=== PATIENT | male | born 1960 | race Caucasian/White ===

== ENCOUNTER 2019-06-02 06:31 | Day surgery (SDC) | payer SELFPAY ==
[2019-06-01 09:28] VITALS: BMI 23.7
[2019-06-02 06:47] VITALS: BP 144/95; PULSE 114; RESP 18; TEMP 36.5; O2SAT 95
[2019-06-02] MEDS: sodium chloride 0.9% 1,000 ML 30 ML (07:08)
--- NOTE | 2019-06-02 07:14 | ANES.PREANE2 ---
Pre-Anesthetic Assessment Pre-Anesthetic Assessment: Height/Weight: Height 1.73 m Weight 70.76 kg Temp Pulse Resp BP Pulse Ox 97.7 F 114 H 18 144/95 95 06/02/19 06:47 06/02/19 06:47 06/02/19 06:47 06/02/19 06:47 06/02/19 06:47 Preop Diagnosis: Screening colonoscopy Proposed Procedure: Operation Date: 06/02/19 07:45 Proposed Procedures p COLON(Not Applicable) - Dennis Flannery MD Familial anesthetic complications: denies Was Beta Yash taken within 24 hours: N/A Last intake: Intake Last Liquid Date 06/01/19 Last Liquid Time 20:00 Last Solid Date 06/01/19 Last Solid Time 12:00 Social: Social History: Alcohol (beer most days and whiskey every now and then ) and Tobacco Packs per day: 2 Pack years: greater than 25 years Exam: Pre-Anes Outpt Exam: alert, oriented x 3 and clear to auscultation bilaterally Airway: MP: 1 Dentition: Full (upper denture ) History/ROS: No significant history except as noted Pulmonary: Pulmonary: COPD and Cough CV/HEM: CV/HEM: HTN (says it goes up and down) : : None reported Hepatic: Hepatic: None reported GI: GI: None reported Metabolic: Metabolic: None reported Musc/skel: Musc/skel: Lower Back Pain Neuropsych: Neuropsych: None reported Anesthetic Plan: ASA status: 2 Anesthesia: Anesthesia Evaluation and MAC PFSH Anesthesia PFSH: Social History Smoking and tobacco status: current every day smoker Alcohol intake: current Desire information about alcohol rehabilitation?: No Data Anesthesia Cardiac Studies: No Data to Display
--- NOTE | 2019-06-02 07:46 | W.PM.OPSUD ---
Surgery/Procedure H&P Update DATE OF PROCEDURE: June 02, 2019 DATE H&P PERFORMED: 05/27/19 H&P UPDATE INFORMATION: I have reviewed H&P completed within last 30 days, I have examined patient prior to procedure and No changes to prior documentation PREOP DIAGNOSIS: Screening colonoscopy PRIMARY INDICATION FOR PROCEDURE: The same PLANNED PROCEDURE: Operation Date: 06/02/19 07:45 Proposed Procedures p COLON(Not Applicable) - Dennis Flannery MD
[2019-06-02 08:40] VITALS: BP 115/76; PULSE 78; RESP 16; TEMP 36.3; O2SAT 98
[2019-06-02 08:54] VITALS: BP 120/88; PULSE 90; RESP 18; O2SAT 99
== END 2019-06-02 09:06 | disposition home or self-care (01) ==
PROVIDERS: Visit Provider Surgery
PROC: 0DJD8ZZ Inspection of Lower Intestinal Tract, Via Natural or Artificial Opening Endoscopic (ICD-10-PCS; CPT 45378; principal; 2019-06-02 07:45)
DX: Z12.11 Encounter for screening for malignant neoplasm of colon (principal); J44.9 Chronic obstructive pulmonary disease, unspecified; I10 Essential (primary) hypertension; F17.210 Nicotine dependence, cigarettes, uncomplicated
CPT/HCPCS: 12345; 45378; J2704; J7030

== ENCOUNTER 2021-01-30 13:39 | Emergency (ER) | payer SELFPAY ==
[2021-01-30] VITALS (13 sets, daily range): BP systolic 139–197; BP diastolic 100–116; PULSE 78–126; RESP 14–25; TEMP 36.5; O2SAT 95–97; BMI 25.0
--- NOTE | 2021-01-30 13:42 | ECG_ITS ---
[facility] Test Date: 2021-01-30 Pat Name: John Farah Department: Room: Gender: Male Bean Viner: : 1960 Requested By: Alvarez Oden Order Number: [id number] Michelle MD: Lissy Pablo M.D. Measurements Intervals [place] Rate: 119 P: 64 GA: 155 QRS: 34 QRSD: 78 T: 42 QT: 292 QTc: 411 Interpretive Statements SINUS TACHYCARDIA MINIMAL ST DEPRESSION [0.025+ mV ST DEPRESSION] No previous ECG available for comparison Electronically Signed On 01-31-2021 7:30:23 MAINTENANCE PLANNER by Lissy Pablo M.D. [id number]
--- NOTE | 2021-01-30 14:19 | XRR_ITS ---
PROCEDURE INFORMATION: Exam: XR Chest Exam date and time: 01/30/2021 2:19 PM Age: 60 years old Clinical indication: Patient HX: C/O chest pain at a level of 5. HX of skin cancer TECHNIQUE: Imaging protocol: XR of the chest. Views: 1 view. COMPARISON: CT neck w con* [id number] 11/05/2017 10:08 AM FINDINGS: Lungs: Unremarkable. No consolidation. Pleural spaces: Unremarkable. No pleural effusion. No pneumothorax. Heart/Mediastinum: Unremarkable. No cardiomegaly. Bones/joints: Unremarkable. XR/XR chest 1V portable [id number] IMPRESSION: No acute findings. Radiation Dose CTDIVOL = (mGy): DLP = (mGy-cm)
--- NOTE | 2021-01-30 14:39 | W.ED.CHESTPA ---
HPI - Chest Pain General: Chief Complaint: Chest Pain Stated Complaint: Chest Pain Time Seen by Provider: 01/30/21 14:17 History of Present Illness: HPI narrative: 60-year-old male presents emergency room from a local clinic. He was seen there with complaints of chest pain yesterday is radiating into his neck and back. There is less chest pain today with no radiation. No shortness of breath no diaphoresis no nausea. Has not had any previous known cardiac events or evaluate cardiac evaluation. He does have a family history of heart disease father young of a heart attack. Patient does smoke regularly he has hypertension but does not take any medications. Unfortunately he recently lost his son to an unknown cardiac issue. MD complaint: chest pain Onset (ago): hour(s) Timing of current episode: episodic Prior episodes: Yes Onset: during rest Pain location: left chest Severity: moderate Quality: tightness and aching Relieving factors: nothing Exacerbating factors: nothing Associated symptoms: Deny abdominal pain, diaphoresis, dyspnea, fever(s), leg edema, nausea, palpitations, sense of impending doom, syncope or vomiting Treatment prior to arrival: none Review of Systems Const: Denies: fever(s) or diaphoresis ENMT: Denies: throat pain, ear or mastoid pain, nasal discharge or nasal congestion Card: Denies: palpitations or syncope Resp: Denies: dyspnea GI: Denies: abdominal pain, nausea or vomiting : Denies: flank pain, dysuria, urinary frequency or urinary urgency Skin/Breast: Denies: rash or pruritus [facility] PFSH: Medical History (Updated 01/30/21 @ 18:04 by Alvarez Perdomo DO) Normal colonoscopy Surgical History History of colonoscopy (~2009) Status post lumbar spine operation Social History Smoking and tobacco status: current every day smoker Alcohol intake: current Desire information about alcohol rehabilitation?: No Physical Exam Const: COMMON NORMALS: no acute distress GENERAL APPEARANCE: cooperative and comfortable ORIENTATION/CONSCIOUSNESS: Yes awake, Yes oriented to person, Yes oriented to place and Yes oriented to time HENMT: COMMON NORMALS: normocephalic, atraumatic and hearing grossly normal bilaterally HEAD & SCALP: normocephalic and atraumatic Resp: COMMON NORMALS: normal respiratory effort, No retractions, No use of accessory muscles and clear to auscultation bilaterally AUSCULTATION: clear to auscultation bilaterally Cardio: COMMON NORMALS: regular rate, regular rhythm and No murmurs present (Cardio) RATE: regular rate RHYTHM: regular rhythm GI: COMMON NORMALS: Soft to palpation and No hepatosplenomegaly present AUSCULTATION: Yes normoactive bowel sounds PALPATION: Yes Soft to palpation, No Tenderness to palpation present (GI), No Guarding due to palpation present (GI) and Yes No hepatosplenomegaly present Extremity: COMMON NORMALS: normal to inspection, capillary refill normal, no clubbing, cyanosis or edema, no calf tenderness and no pedal edema Neuro: SENSORIUM/ORIENTATION: Yes oriented to person, Yes oriented to place and Yes oriented to time Skin: COMMON NORMALS: no rashes or lesions noted GENERAL SKIN EXAM: no rashes or lesions noted Course Vital Signs: Vital signs: Vital Signs Temperature 97.7 F 01/30/21 13:48 Pulse Rate 78 01/30/21 17:30 Respiratory Rate 19 H 01/30/21 17:30 Blood Pressure 140/100 01/30/21 17:30 Pulse Oximetry 96 01/30/21 17:30 MDM - Chest Pain MDM Narrative: Medical decision making narrative: Reviewed labs imaging and EKG on the chart. Discussed with the patient. Does have significant elevation in his blood pressure is chest discomfort has resolved he would prefer to go home. We will start him on amlodipine 5 mg daily and Toprol-XL 25 daily have him follow-up with his primary care doctor in the next 1 to 2 days. Return if he has any further problems and we will set him up for an outpatient sestamibi stress test. Lab Data: Labs: Lab Results 01/30/21 01/30/21 01/30/21 15:03 15:03 15:03 WBC 10.3 10^3/uL H 10 ^3/uL (4.0-10.0) RBC 4.80 10^6/uL 10^6 /uL (4.1-5.3) Hgb 16.2 g/dL g/dL (11.7-16.6) Hct 47.5 % % (42.0-52.0) MCV 99.0 fl H fl (80-94) MCH 33.8 pg pg (28.0-34.0) MCHC 34.1 g/dL g/dL (30.0-36.0) RDW 12.6 % % (12.1-15.1) Plt Count 264 10^3/cmm 10^3 /cmm (130-400) MPV 9.4 fL fL (7.4-10.4) Neut % (Auto) 71.5 % % Lymph % (Auto) 17.4 % % [place] % (Auto) 10.1 % % Eos % (Auto) 0.2 % % Baso % (Auto) 0.5 % % Neut # (Auto) 7.35 10^3/uL 10^3 /uL (1.8-7.7) Lymph # (Auto) 1.8 10^3/uL 10^3/ uL (0.8-4.8) [place] # (Auto) 1.0 10^3/uL H 10^ 3/uL (0.2-0.9) Eos # (Auto) 0.0 10^3/uL 10^3/ uL (0.0-0.8) Baso # (Auto) 0.1 10^3/uL 10^3/ uL (0.0-0.1) Nucleated RBC % (a uto) 0 % % Nucleated RBCs # 0.0 /100WBC /100W BC Sodium 136 mmol/L mmol/L (136-145) Potassium 4.1 mmol/L mmol/L (3.5-5.1) Chloride 98 mmol/L mmol/L (98-107) Carbon Dioxide 25 mmol/L mmol/L (22-29) Anion Gap 17.1 (5-19) BUN 13 mg/dL mg/dL (8-23) Creatinine 0.9 mg/dL mg/dL (0.7-1.2) GFR Calculation 85.5 mL/min L mL/ min (90-130) Glucose 115 mg/dL mg/dL (65-115) Calculated Osmolal ity 283 mOsm/kg L mOs m/kg (285-295) Calcium 9.6 mg/dL mg/dL (8.5-10.5) Total Bilirubin 0.5 mg/dL mg/dL (0.15-1.2) AST 51 U/L H U/L (0-40) ALT 70 U/L H U/L (0-41) Alkaline Phosphata se 109 IU/L IU/L (40-130) Troponin T Baselin e 9 ng/L ng/L (0-15) Troponin T 120 Min jaden Delta Troponin T Total Protein 7.7 g/dL g/dL (6.6-8.7) Albumin 4.2 g/dL g/dL (3.5-5.2) Globulin 3.5 g/dL g/dL (1.3-4.6) 01/30/21 17:10 WBC RBC Hgb Hct MCV MCH MCHC RDW Plt Count MPV Neut % (Auto) Lymph % (Auto) [place] % (Auto) Eos % (Auto) Baso % (Auto) Neut # (Auto) Lymph # (Auto) [place] # (Auto) Eos # (Auto) Baso # (Auto) Nucleated RBC % (a uto) Nucleated RBCs # Sodium Potassium Chloride Carbon Dioxide Anion Gap BUN Creatinine GFR Calculation Glucose Calculated Osmolal ity Calcium Total Bilirubin AST ALT Alkaline Phosphata se Troponin T Baselin e Troponin T 120 Min jaden 9.47 ng/L ng/L (0-15) Delta Troponin T 0.47 ABS# ABS# (0-10) Total Protein Albumin Globulin Discharge Plan Discharge Patient Disposition: Home Clinical Impression: Atypical chest pain, Benign essential HTN Condition: Stable Prescriptions: New amlodipine 5 mg tablet 5 mg PO DAILY Qty: 30 RF: 0 Toprol XL 25 mg tablet extended release 24 hr 25 mg PO DAILY Qty: 30 RF: 0 No Action aspirin 325 mg Tablet 325 mg PO ONCE RF: 0 aspirin [Aspir-81] 81 mg Tablet,Delayed Release (Dr/Ec) 81 mg PO ONCE RF: 0 Tylenol Ex Str Rapid Release 500 mg Tablet 500 mg PO Q4H PRN (Reason: Pain) RF: 0 Discharge Orders: Discharge ED (Routine); Ordered 01/30/21 Ordered By: Alvarez Perdomo Discharge Diet: Usual diet Discharge Activity: Limit activity as instructed Patient Instructions: Opioid Safety Activity Restrictions/Additional Instructions: Case Management will call and arrange for you to ahve a stress test as an outpatient. Coding Level of Care Code ED Customer Care Consultant for Les Fwd Exam Detailed
[2021-01-30 15:09] LABS: Basophils # 0.1 10^3/uL (0.0-0.1); Basophils % 0.5 %; Eosinophils % 0.2 %; Hematocrit 47.5 % (42.0-52.0); Hemoglobin 16.2 g/dL (11.7-16.6); Lymphocytes # 1.8 10^3/uL (0.8-4.8); Lymphocytes % 17.4 %; Mean Corpuscular HGB Conc 34.1 g/dL (30.0-36.0); Mean Corpuscular Hemoglobin 33.8 pg (28.0-34.0); Mean Platelet Volume 9.4 fL (7.4-10.4); Monocytes % 10.1 %; Neutrophils # 7.35 10^3/uL (1.8-7.7); Neutrophils % 71.5 %; Nucleated Red Blood Cells % 0 %; Platelet Count 264 10^3/cmm (130-400); Red Cell Distribution Width 12.6 % (12.1-15.1); White Blood Count 10.3 10^3/uL (4.0-10.0)
[2021-01-30] MEDS: aspirin 81 mg Chew Tablet 324 MG PO (15:15)
[2021-01-30] MEDS: metoprolol tartrate 50 mg Tablet PO (15:16)
[2021-01-30] MEDS: metoprolol tartrate 1 mg/1 mL SDV 5 mL 5 MG IVP (15:17)
[2021-01-30] MEDS: isosorbide mononitrate ER 30 mg Tablet PO (15:17)
[2021-01-30 15:28] LABS: Troponin(5th) Baseline 9 ng/L (0-15)
[2021-01-30 15:49] LABS: Alanine Aminotransferase 70 U/L (0-41); Albumin Level 4.2 g/dL (3.5-5.2); Alkaline Phosphatase 109 IU/L (40-130); Anion Gap 17.1 (5-19); Aspartate Amino Transferase 51 U/L (0-40); Blood Urea Nitrogen 13 mg/dL (8-23); Calcium 9.6 mg/dL (8.5-10.5); Carbon Dioxide 25 mmol/L (22-29); Chloride 98 mmol/L (98-107); Creatinine Clr Calc Pharmacy 85.4355; Globulin 3.5 g/dL (1.3-4.6); Glomerular Filtration Rate 85.5 mL/min (90-130); Glucose 115 mg/dL (65-115); Osmolality Calculated 283 mOsm/kg (285-295); Potassium 4.1 mmol/L (3.5-5.1); Sodium 136 mmol/L (136-145); Total Bilirubin 0.5 mg/dL (0.15-1.2); Total Protein 7.7 g/dL (6.6-8.7)
[2021-01-30 18:00] LABS: Troponin 5 2HR 9.47 ng/L (0-15); Troponin 5 2HR Delta 0.47 ABS# (0-10)
--- NOTE | 2021-01-31 10:13 | DCPLANNER ---
manager financial had message to schedule an out patient stress test for patient. manager financial called and asked patient if he wanted showcase maker to schedule the stress test, patient stated that he did. manager financial asked patient about a primary care physician, patient stated that he does not have one at this time. manager financial asked patient if showcase maker could get patient set up with Dr. Tracy or Dr. Mast at [facility], patient stated that would be fine. manager financial will fax signed order to centralized scheduling, and when the stress test is scheduled, showcase maker will schedule a follow up appointment at [facility].
--- NOTE | 2021-02-08 13:52 | DCPLANNER ---
Addendum entered by Swetha Sanchez 04/15/21 15:30: Patient had a followup appointment scheduled for an out patient stress test - appointment was cancelled Patient had a follow up appointment scheduled with Dr. Tracy at [facility] - patient did not attend appointment. Original Note: evs manager called [facility], spoke with Lissa, gave clinic patients information. A follow up appointment was scheduled for Friday, February 19, 2021 at 9:[address] Tracy. This is after the stress test, so the results of the stress test can be gone over with patient. evs manager called patient and gave him the appointment information for the appointment with Dr. Tracy.
== END 2021-01-30 18:13 | disposition home or self-care (01) ==
PROVIDERS: Emergency Provider Family Medicine
DX: R07.89 Other chest pain (principal); I10 Essential (primary) hypertension; Z79.82 Long term (current) use of aspirin; F17.200 Nicotine dependence, unspecified, uncomplicated
CPT/HCPCS: 71045; 80053; 84484; 85025; 93005; 96374; 99284; J3490

== ENCOUNTER 2021-02-14 10:32 | Outpatient (CLI) | payer SELFPAY ==
--- NOTE | 2021-02-12 07:46 | SUR.PREOP ---
PROCEDURE RESCHEDULE Patient arrived but had caffeine this morning at approximately 3:30. Explained the restrictions for caffeine and they understood the need for reschedule. Placed on stress schedule at earliest date/time. 02/14/21 with a check in at 9:45 am. Prep instructions given to the patient and which they understood before leaving today. Discharge disposition is good.
[2021-02-14 09:58] VITALS: BMI 24.6
--- NOTE | 2021-02-14 10:38 | ECG_ITS ---
[facility] Test Date: 2021-02-14 Pat Name: John Farah Department: Room: Gender: Male Wax Specialist: : 1960 Requested By: Marcelino Harrison Order Number: [id number] Michelle MD: DORA ALEGRIA Interpretive Statements NAME OF STUDY: LEXISCAN SESTAMIBI STRESS TEST INDICATION: Atypical Chest Pain RESULTS TO RANCHO RUCKER NOTE: Please note that this is the electrocardiogram portion of the Lexiscan/Sestamibi stress test. The perfusion scan will be documented separately. DATA: Baseline heart rate was 93 beats per minute. Baseline blood pressure was 170/101 millimeters of mercury. Target heart rate was 158. Maximum heart rate achieved was 131. which was 82 % of the predicted target heart rate. Maximum blood pressure was 177/101 millimeters of mercury. The reason for ending the test was completion of the protocol. The patient did not experience any symptoms. ELECTROCARDIOGRAM: BASELINE: Sinus rhythm. Normal axis. Otherwise, no ST-T changes suggestive of ischemia noted. No arrhythmia noted. EXERCISE: After Lexiscan injection, no ST-T changes suggestive of ischemic noted. No arrhythmia noted. 1. EKG not suggestive of ischemia 2. Lexiscan injection unremarkable. 3. Perfusion scan will be documented separately. Electronically Signed On 02-16-2021 14:39:58 PIN DRAFTING MACHINE TENDER by DORA ALEGRIA [id number]
--- NOTE | 2021-02-14 10:38 | NMCV_ITS ---
NM ina perf SPECT r/s* [id number] John Farah Age: 60 Gender: M : 1960 Exam Date: 02/14/2021 11:34 Ordering Phys: Marcelino Starkey DO Technologist: BYRON Boyd Exam Location: [facility] Indications: CHEST PAIN STRESS TEST [facility] IMAGE PROTOCOL Rest/Stress 1 Lexiscan Day Radiopharmaceutical Dose (mCi) Administration Site Administered by Rest: Tc-99m 10.9 IV BYRON Coto Sestamibi Stress:Tc-99m 32.4 IV BYRON Coto Sestamibi Rest: 14-Feb-2021 60 Discovery 630 Stress: 14-Feb-2021 30 Discovery 630 0.4mg Lexiscan. Images obtained in supine and prone position. SPECT RESULTS Technical Quality: Excellent Raw Data Analysis: Normal Image Corrections: No attenuation or motion correction applied Summed Stress Score: 0 Summed Rest Score: 0 Summed Difference Score: 0 PERFUSION FINDINGS Medium-sized area of patchy decreased tracer uptake noted in basal to mid inferior wall on both stress and rest images with mild reversibility in the absence of wall motion abnormality could be secondary to artifact, clinical correlation advised. FUNCTIONAL RESULTS (calculated via Gated SPECT) Stress Image LV EF (%): 63 Stress EDV (mL):79 TID: 0.94 Stress ESV (mL):29 Rest Image LV EF (%): 63 FUNCTIONAL FINDINGS: There is normal left ventricular systolic function. IMPRESSIONS Medium-sized area of patchy decreased tracer uptake noted in basal to mid inferior wall on both stress and rest images with mild reversibility in the absence of wall motion abnormality could be secondary to artifact, clinical correlation advised. EKG segment will be documented separately. Ian Christy MD (Electronically Signed) Final Date: 14 February 2021 15:19 S
[2021-02-14] MEDS: regadenoson 0.4 Mg/5 ml Syringe IVP (12:27)
[2021-02-14 13:05] VITALS: BP 168/86; PULSE 86
== END 2021-02-14 10:33 | disposition home or self-care (01) ==
LOC: RAD 10:32 → CDL 10:32
PROVIDERS: Visit Provider Pediatrics Pediatric Allergy/Immunology
DX: R07.89 Other chest pain (principal)
CPT/HCPCS: 78452; 93017; A9500; J2785

== ENCOUNTER 2022-11-01 10:12 | Outpatient (CLI) | payer SELFPAY ==
--- NOTE | 2022-11-01 10:30 | CT_ITS ---
WS: [id number] LDCT LUNG CANCER SCREENING TECHNIQUE: Noncontrast CT of the chest with coronal and sagittal reformatted images. CLINICAL INFORMATION: smoker COMPARISON: None. DLP: 59.58 mGy.cm DIvol: Mean CTDIvol: 0.90 (mGy) All CT scans at [facility] use at least one of these dose optimization techniques: automat ed exposure control; mA and/or kV adjustment per patient size (includes targeted exams where dose is matched to clinical indication); or iterative reconstruction. FINDINGS: Lungs are well aerated. No acute pulmonary infiltrates. A few calcified granulomas. No othe r suspicious pulmonary parenchymal abnormalities Normal caliber thoracic aorta. Calcified mediastinal subcarinal and hilar lymph nodes. No axillary ly mphadenopathy. Normal GE junction. Noncontrast liver appears normal. Spleen granulomas. Noncontrast p ancreas appears normal. Adrenal glands appear normal. Normal GE junction. IMPRESSION: CT/CT lung screening [id number] LUNG-RADS: 1-Negative FOLLOW UP: 12 Month: Continue annual screening with LDCT
== END 2022-11-01 10:13 | disposition home or self-care (01) ==
LOC: RAD 10:13
PROVIDERS: PCP Family Medicine Adult Medicine; Visit Provider Family Medicine Adult Medicine
DX: F17.200 Nicotine dependence, unspecified, uncomplicated (principal); Z12.2 Encounter for screening for malignant neoplasm of respiratory organs
CPT/HCPCS: 71271

== ENCOUNTER 2024-03-17 10:36 | Observation (INO) | payer MEDICARE, SELFPAY ==
[2024-03-17] VITALS (11 sets, daily range): BP systolic 122–212; BP diastolic 68–135; PULSE 74–156; RESP 15–20; TEMP 36.6–36.9; O2SAT 94–98; BMI 22.8
--- NOTE | 2024-03-17 10:50 | ECG_ITS ---
[facility] Date: 2024-03-17 Pat Name: John Farah Department: Room: Gender: Male Cocoa Mill Operator: : 1960 Requested By: Michelle Sher Order Number: [id number] Michelle MD: Temo Haley M.D. Measurements Intervals [place] Rate: 138 P: 72 IN: 139 QRS: 68 QRSD: 86 T: 27 QT: 297 QTc: 450 Interpretive Statements SINUS TACHYCARDIA NONSPECIFIC ST & T-WAVE ABNORMALITY ABNORMAL RHYTHM ECG Compared to ECG 01/30/2021 13:46:49 T-wave abnormality now present ST (T wave) deviation no longer present Electronically Signed On 03-17-2024 17:39:01 SNAKE CHARMER by Temo Haley M.D. [id number]
--- NOTE | 2024-03-17 10:51 | W.ED.CHESTPA ---
HPI - Chest Pain General: Chief Complaint: Arrhythmia/Palpitations Stated Complaint: HR is high Time Seen by Provider: 03/17/24 10:41 Source: patient Mode of arrival: ambulatory Limitations: no limitations History of Present Illness: 63-year-old male states that he has been having some chest pain over the last 2 to 3 days states been pain down both his arms states this morning when he woke up he has been hypertensive and has had tachycardia as well heart rate was 140s at home it is 117 currently he is hypertensive 211/114 has had some mild dyspnea rates his pain a 2 out of 10 denies any fever vomiting Associated symptoms: Reports palpitations; Deny abdominal pain, dyspnea, fever(s), nausea or vomiting Related Data Home Medications Medication Instructions Recorded Confirmed amlodipine 10 mg tablet 10 mg PO DAILY 03/17/24 03/17/24 chlorthalidone 25 mg tablet 25 mg PO QAM 03/17/24 03/17/24 Previous Rx's Medication Instructions Recorded aspirin 81 mg tablet,delayed 81 mg PO ONCE #90 tabs 08/06/23 release albuterol sulfate 90 mcg/actuation 2 inh inhalation Q4H PRN shortness 08/27/23 aerosol inhaler of breath or wheezing #6.7 grams Allergies Allergy/AdvReac Type Severity Reaction Status Date / Time codeine Allergy ADR/ALGY-Pa Verified 08/26/23 09:29 lpitations meloxicam [From Mobic] Allergy Unknown Verified 08/26/23 09:29 Review of Systems Const: Denies: fever(s), chills, body aches or change in appetite ENMT: Denies: throat pain or dental pain Card: Reports: chest pain and palpitations Resp: Denies: dyspnea GI: Denies: abdominal pain, nausea, vomiting or diarrhea Musc: Denies: neck pain or back pain Skin/Breast: Denies: rash Neuro: Denies: headache(s) PFSH ED PFSH: Medical History (Updated 03/17/24 @ 12:53 by Michelle Sher MD) Anxiety and depression Abdominal pain in male Elevated blood pressure reading in office with diagnosis of hypertension Allergic rhinitis due to allergen Perforated right tympanic membrane on examination Hearing 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 COPD (chronic obstructive pulmonary disease) Smoker Age 8 to present, 2ppd so 100+ ppy Hypertension Normal colonoscopy Surgical History Status post lumbar spine operation History of colonoscopy (~2009) Social History Smoking and tobacco/nicotine status: current every day tobacco/nicotine user Alcohol intake: current Physical Exam Const: COMMON NORMALS: patient oriented x3 HENMT: COMMON NORMALS: normocephalic and atraumatic HEAD & SCALP: normocephalic and atraumatic Eye: COMMON NORMALS: Equal, round and reactive pupils present and EOMs intact bilaterally PUPIL: Yes Equal, round and reactive pupils present Neck/C-Spine: COMMON NORMALS: full ROM and supple Chest: COMMONS NORMALS: normal inspection of the chest Resp: COMMON NORMALS: normal respiratory effort, No retractions, No use of accessory muscles and clear to auscultation bilaterally AUSCULTATION: clear to auscultation bilaterally Cardio: COMMON NORMALS: regular rhythm and No murmurs present (Cardio) RATE: tachycardic RHYTHM: regular rhythm GI: COMMON NORMALS: Normal to inspection, nondistended, normoactive bowel sounds present, Soft to palpation, non-tender and no masses PALPATION: Yes Soft to palpation Extremity: COMMON NORMALS: normal to inspection and full ROM Neuro: COMMON NORMALS: patient oriented x3, moves all extremities and no focal motor deficits Psych: COMMON NORMALS: mental status grossly normal, Normal thought process present and cooperative THOUGHT PROCESS: Normal thought process present Skin: COMMON NORMALS: no rashes or lesions noted and no wounds GENERAL SKIN EXAM: no rashes or lesions noted Course Vital Signs: Vital signs: Vital Signs Temperature 97.9 F 03/17/24 10:56 Pulse Rate 75 03/17/24 13:11 Respiratory Rate 15 03/17/24 11:45 Blood Pressure 175/68 03/17/24 13:11 Pulse Oximetry 98 03/17/24 13:11 Oxygen Delivery Me thod Room Air 03/17/24 10:51 MDM - Chest Pain Medical Decision Making Patient presents here with chest pain is also hypertensive his initial troponin here is 44 his blood pressure heart rate here is improved D-dimer was negative I spoke to the hospitalist will admit for ACS rule out. Medical Records I reviewed the patient's medical records. Lab Data I reviewed the patient's lab results. 03/17/24 10:49 03/17/24 10:49 Radiology Impressions Chest X-Ray 03/17/24 11:07 IMPRESSION: 1. The lungs are clear. 2. Cardiomegaly. Laboratory Results WBC 14.66 10^3/uL (3.29-11.43) H 03/17/24 10:49 RBC 5.80 10^6/uL (3.85-5.65) H 03/17/24 10:49 Hgb 18.80 g/dL (11.27-16.99) H 03/17/24 10:49 Hct 55.3 % (37-53) H 03/17/24 10:49 MCV 95.3 fl (82-101) 03/17/24 10:49 MCH 32.4 pg (27-33) 03/17/24 10:49 MCHC 34.0 g/dL (30-55) 03/17/24 10:49 RDW 12.8 % (12.1-15.1) 03/17/24 10:49 Plt Count 309 10^3/cmm (157-399) 03/17/24 10:49 MPV 9.8 fL (7.4-10.4) 03/17/24 10:49 Neut % (Auto) 61.5 % 03/17/24 10:49 Lymph % (Auto) 27.6 % 03/17/24 10:49 [place] % (Auto) 9.3 % 03/17/24 10:49 Eos % (Auto) 0.8 % 03/17/24 10:49 Baso % (Auto) 0.4 % 03/17/24 10:49 Neut # (Auto) 9.02 10^3/uL (1.8-7.7) H 03/17/24 10:49 Lymph # (Auto) 4.1 10^3/uL (0.8-4.8) 03/17/24 10:49 [place] # (Auto) 1.4 10^3/uL (0.2-0.9) H 03/17/24 10:49 Eos # (Auto) 0.1 10^3/uL (0.0-0.8) 03/17/24 10:49 Baso # (Auto) 0.1 10^3/uL (0.0-0.1) 03/17/24 10:49 Nucleated RBC % (auto) 0 % 03/17/24 10:49 Nucleated RBCs # 0.0 /100WBC 03/17/24 10:49 D-Dimer 0.37 ug/mLFEU (0-0.59) 03/17/24 10:49 Sodium 136 mmol/L (136-145) 03/17/24 10:49 Potassium 3.4 mmol/L (3.5-5.1) L 03/17/24 10:49 Chloride 98 mmol/L (98-107) 03/17/24 10:49 Carbon Dioxide 23 mmol/L (22-29) 03/17/24 10:49 Anion Gap 18.4 (5-19) 03/17/24 10:49 BUN 16 mg/dL (8-23) 03/17/24 10:49 Creatinine 1.2 mg/dL (0.7-1.2) 03/17/24 10:49 GFR Calculation 60.8 mL/min (90-130) L 03/17/24 10:49 Glucose 163 mg/dL (65-115) H 03/17/24 10:49 Calculated Osmolality 287 mOsm/kg (285-295) 03/17/24 10:49 Calcium 9.7 mg/dL (8.5-10.5) 03/17/24 10:49 Total Bilirubin 0.5 mg/dL (0.15-1.2) 03/17/24 10:49 AST 20 U/L (0-40) 03/17/24 10:49 ALT 17 U/L (0-41) 03/17/24 10:49 Alkaline Phosphatase 151 U/L (40-130) H 03/17/24 10:49 Troponin T Baseline 44 ng/L (0-15) H 03/17/24 10:49 Troponin T 120 Minute 56.06 ng/L (0-15) H 03/17/24 12:49 Delta Troponin T 12.06 ABS# (0-10) H* 03/17/24 12:49 Total Protein 8.5 g/dL (6.6-8.7) 03/17/24 10:49 Albumin 4.4 g/dL (3.5-5.2) 03/17/24 10:49 Globulin 4.1 g/dL (1.3-4.6) 03/17/24 10:49 All radiology interpretation(s) finalized by discharge EKG Data EKG 1: I personally reviewed and interpreted this EKG as follows: EKG interpretation date: 03/17/24 EKG interpretation time: 10:44 Interpretation: sinus tach hr [address] elevationm qrs 86 qtc 377 Discharge Plan Discharge Patient Disposition: Admitted As Inpatient Clinical Impression: Chest pain Hypertension Qualifiers: Hypertension type: primary hypertension Qualified Code(s): I10 - Essential (primary) hypertension Condition: Stable Coding Level of Care Code ED Corporate Banking Officer for Chg Jensen
[2024-03-17] MEDS: labetalol 5 mg/mL SDV 20mL 10 MG IVP (11:00)
[2024-03-17] MEDS: aspirin 81 mg Chew Tablet 324 MG PO (11:01)
[2024-03-17 11:03] LABS: Basophils # 0.1 10^3/uL (0.0-0.1); Basophils % 0.4 %; Eosinophils # 0.1 10^3/uL (0.0-0.8); Eosinophils % 0.8 %; Hematocrit 55.3 % (37-53); Lymphocytes # 4.1 10^3/uL (0.8-4.8); Lymphocytes % 27.6 %; Mean Corpuscular Hemoglobin 32.4 pg (27-33); Mean Corpuscular Volume 95.3 fl (82-101); Mean Platelet Volume 9.8 fL (7.4-10.4); Monocytes # 1.4 10^3/uL (0.2-0.9); Monocytes % 9.3 %; Neutrophils # 9.02 10^3/uL (1.8-7.7); Neutrophils % 61.5 %; Nucleated Red Blood Cells % 0 %; Platelet Count 309 10^3/cmm (157-399); Red Cell Distribution Width 12.8 % (12.1-15.1); White Blood Count 14.66 10^3/uL (3.29-11.43)
--- NOTE | 2024-03-17 11:07 | XRR_ITS ---
PROCEDURE INFORMATION: Exam: XR Chest Exam date and time: 03/17/2024 11:15 AM Age: 63 years old Clinical indication: Chest wall pain; Additional info: Cp TECHNIQUE: Imaging protocol: Radiologic exam of the chest. Views: 1 view. COMPARISON: CT lung screening [id number] 11/01/2022 10:27 AM FINDINGS: Lungs: The lungs are clear. Pleural spaces: No pneumothorax or pleural effusion. Heart/Mediastinum: Heart size is enlarged. Mediastinal contours unremarkable. Bones/joints: No acute osseous or soft tissue abnormality. XR/XR chest 1V portable [id number] IMPRESSION: 1. The lungs are clear. 2. Cardiomegaly.
[2024-03-17 11:12] LABS: D Dimer 0.37 ug/mLFEU (0-0.59)
[2024-03-17 11:19] LABS: Alanine Aminotransferase 17 U/L (0-41); Albumin Level 4.4 g/dL (3.5-5.2); Alkaline Phosphatase 151 U/L (40-130); Aspartate Amino Transferase 20 U/L (0-40); Blood Urea Nitrogen 16 mg/dL (8-23); Calcium 9.7 mg/dL (8.5-10.5); Carbon Dioxide 23 mmol/L (22-29); Chloride 98 mmol/L (98-107); Creatinine Clr Calc Pharmacy 59.2497; Globulin 4.1 g/dL (1.3-4.6); Glomerular Filtration Rate 60.8 mL/min (90-130); Glucose 163 mg/dL (65-115); Osmolality Calculated 287 mOsm/kg (285-295); Sodium 136 mmol/L (136-145); Total Bilirubin 0.5 mg/dL (0.15-1.2); Total Protein 8.5 g/dL (6.6-8.7); Troponin(5th) Baseline 44 ng/L (0-15)
[2024-03-17 11:28] LABS: Anion Gap 18.4 (5-19); Potassium 3.4 mmol/L (3.5-5.1)
--- NOTE | 2024-03-17 12:50 | ECG_ITS ---
[facility]: 2024-03[facility]17 Pat Name: John Farah Department: Room: Gender: Male Section Gang: : 1960 Requested By: Michelle Sher Order Number: [id number] Michelle MD: Temo Haley M.D. Measurements Intervals [place] Rate: 75 P: 53 CT: 108 QRS: 65 QRSD: 94 T: 41 QT: 375 QTc: 421 Interpretive Statements SINUS RHYTHM WITH SHORT CT INTERVAL Compared to ECG 03/17/2024 10:44:[address] interval now present Sinus tachycardia no longer present T-wave abnormality no longer present Electronically Signed On 03-17-2024 17:44:22 TARIFF INSPECTOR by Temo Haley M.D. [id number]
[2024-03-17 13:11] LABS: Troponin 5 2HR 56.06 ng/L (0-15)
[2024-03-17 13:17] LABS: Troponin 5 2HR Delta 12.06 ABS# (0-10)
[2024-03-17] MEDS: enoxaparin 80 mg/0.8 mL Syringe 70 MG SUBCUT (13:28)
[2024-03-17 14:00] LABS: Amphetamines Screen Urine Negative (Negative); Barbiturates Screen Urine Negative (Negative); Benzodiazepines Screen Urine Negative (Negative); Cocaine Screen Urine Negative (Negative); Opiate Screen Urine Negative (Negative); PCP Screen Urine Negative (Negative); THC Screen Urine Negative (Negative)
[2024-03-17 14:12] LABS: Procalcitonin 0.05 ng/mL (0-0.5)
--- NOTE | 2024-03-17 14:37 | USCV_ITS ---
John Farah Age: 63 Gender: M : 1960 Exam Date: 03/17/2024 19:39 Ordering Phys: Richie Lebron MD Technologist: OSWALDO Exam Location: [facility] [place] Indication: chest pain BP: 167 / 92 HR: 67 Rhythm: Sinus Technical Quality: Adequate MEASUREMENTS (Male / Female) Normal Values 2D ECHO LV Diastolic Diameter PLAX 4.1 cm 4.2 - 5.9 / 3.9 - 5.3 cm IVS Diastolic Thickness 1.3 cm 0.6 - 1.0 / 0.6 - 0.9 cm IVS Systolic Thickness 1.8 cm LVPW Diastolic Thickness 1.1 cm 0.6 - 1.0 / 0.6 - 0.9 cm LVPW Systolic Thickness 1.7 cm LVOT Diameter 2.1 cm LV Ejection Fraction 2D Teich 63.8 % LV Ejection Fraction MOD 4C 55.9 % LV Ejection Fraction MOD 2C 59.3 % LV Ejection Fraction 2C AL 61.7 % LA Diameter 1.7 cm Aorta at Sinotubular Diameter 3.1 cm IVC Diameter 1.4 cm M-MODE LA Ao Ratio MM 0.8 AV Cusp Separation MM 1.2 cm DOPPLER AV Peak Velocity 89.0 cm/s LVOT Peak Velocity 66.0 cm/s AV Area Cont Eq vti 3.2 cm squared AV Area Cont Eq pk 2.7 cm squared MV Peak Velocity 91.0 cm/s MV Area PHT 3.1 cm squared Mitral E to A Ratio 0.8 TV Peak E Velocity 37.0 cm/s PV Peak Velocity 80.0 cm/s FINDINGS Left Ventricle Left ventricle is normal in size. LV systolic function is normal with EF of 55-60%. No regional wall motion abnormalities seen. Grade 1 diastolic dysfunction. Right Ventricle Normal in size and function Right Atrium Normal in size Left Atrium Normal in size Mitral Valve Structurally normal mitral valve. Trace mitral regurgitation. Aortic Valve Aortic valve is thickened. No significant stenosis or regurgitation. Tricuspid Valve Insufficient TR jet to calculate RVSP Pulmonic Valve Not well visualized Pericardium Normal Aorta Normal in size IVC Appears to be normal CONCLUSIONS LV systolic function is normal with EF of 55-60% Grade 1 diastolic dysfunction Trace mitral regurgitation No comparison studies are available. Gunnar Monreal MD (Electronically Signed) Final Date: 18 March 2024 12:14 S
[2024-03-17 15:32] LABS: Iron 67 ug/dL (59-158); Percent Saturation 23.5 % (20-50); Thyroid Stimulating Hormone 2.06 uIU/mL (0.27-4.20); Total Iron Binding Capacity 284 mcg/dl; Unsaturated Iron Binding 217 ug/dL (112-347); Vitamin B12 414 pg/mL (232-1245)
--- NOTE | 2024-03-17 15:55 | ECG_ITS ---
[facility] Test Date: 2024-03-18 Pat Name: John Farah Department: Room: 107 Gender: Male Funeral Pre Need Consultant: : 1960 Requested By: Richie Lebron Order Number: [id number] Michelle MD: Gunnar Monreal M.D. Interpretive Statements LEXISCAN: Procedure: At the baseline, the blood pressure was 163/90 mmHg with a heart rate of 75 bpm. The electrocardiogram showed normal sinus rhythm, normal axis with normal ST and T's. The Lexiscan was infused over a period of 20 seconds. A total of 0.4 mg of Lexiscan was infused. The stress phase was continued for a total of 5 minutes. Heart rate was at the end of stress phase was 1059 bpm and a blood pressure of 154/84 mmHg. The EKG at the peak infusion revealed normal sinus rhythm with no significant ST-T wave changes. Sestamibi was injected 20 seconds after the Lexiscan infusion. Blood pressure at the end of recovery phase was 151/81mmHg with a heart rate of 101 bpm. Conclusion: 1. Normal EKG response to Lexiscan infusion 2. No Lexiscan induced chest pain or cardiac arrhythmia. 3. Normal blood pressure and heart rate response. 4. Sestamibi/sestamibi perfusion scan pending; see separate report. Electronically Signed On 03-21-2024 20:43:32 PHYSICIAN AIDE by Gunnar Monreal M.D. [id number]
--- NOTE | 2024-03-17 16:12 | P.HP_ITS ---
Providers/Chief Complaint 2 Admitting Physician: Richie Lebron MD Chief Complaint: HR is high History of Present Illness John Farah is a 63 year old male with past medical history of hypertension, COPD who presents to the ER today because of chest discomfort which started today morning when he was resting. He felt palpitations with mild chest heaviness. He states he has been having some bilateral arm pains with chest heaviness on and off both at rest and exertion for last few weeks. He has been under a lot of stress as he has been taking care of his and has been missing his antihypertensive for over a month. Started taking his medications again on Friday. Today is Friday. Has been checking his blood pressures on and off and usually blood pressures run more than 180 systolics. States blood pressures improves after he takes Klonopin and it comes down to around 160s. In the ER he was found to have a blood pressure of more than 200 systolic with a heart rate of 150 bpm and given IV labetalol. He otherwise denies any nausea, vomiting, headache, dizziness, dysuria, diarrhea, abdominal pain. Review of Systems 2 General: Reports: 10 or more systems reviewed and unremarkable except in HPI and below Const: Denies: fever(s), chills, body aches, change in appetite, change in weight, malaise, night sweats, diaphoresis, change in sleep pattern, daytime sleepiness or snoring Eyes: Denies: change in vision, blurry vision, photophobia, eye discomfort or eye discharge ENMT: Denies: throat pain, enlarged tonsils, hoarseness, mouth pain, oral sores, dry mouth, tinnitus, nasal congestion or post nasal drip Card: Denies: chest pain, palpitations, irregular heart rhythm, edema, swelling of feet/ankles, lightheadedness, syncope, pre-syncope, dyspnea on exertion, orthopnea, leg pain with exertion or acrocyanosis Resp: Denies: dyspnea, productive cough, non-productive cough, wheezing, stridor, pain on inspiration, change in phlegm color, hemoptysis or chest congestion GI: Denies: abdominal pain, nausea, vomiting, hematemesis, coffee ground emesis, dysphagia, heartburn, diarrhea, constipation, bloating, GI cramping, change in bowel habits, pain on defecation, hematochezia or melena : Denies: flank pain, difficulty urinating, dysuria, urinary frequency, urinary urgency, urinary hesitancy, urinary dribbling, difficulty starting urination, change in urine stream, nocturia or hematuria Musc: Denies: neck pain, back pain, extremity pain, joint pain, joint swelling, joint redness, joint stiffness or limited range of motion Neuro: Denies: headache(s), numbness in extremities, weakness in extremities, sensory changes, lack of coordination, difficulty walking, frequent falls, dizziness, vertigo, confusion, Slurred speech present, difficulty communicating thoughts or seizure-like activity Psych: Denies: anxiety, depression, mood swings, panic attacks, hopelessness or irritability Endo: Denies: polyuria, polydipsia, tired all the time, cold intolerance, excessive sweating, flushing or heat intolerance Juan/Lymph: Denies: easy bruising or easy bleeding All/Imm: Denies: tongue swelling, facial swelling or acute wheezing Medications/Allergies Home Medications Medication Instructions Recorded Confirmed Last Taken Type aspirin 81 mg tablet,delayed 81 mg PO ONCE #90 tabs 08/06/23 03/17/24 Unknown Rx release albuterol sulfate 90 mcg/actuation 2 inh inhalation Q4H PRN shortness 08/27/23 03/17/24 03/17/24 Rx aerosol inhaler of breath or wheezing #6.7 grams amlodipine 10 mg tablet 10 mg PO DAILY 03/17/24 03/17/24 03/17/24 History chlorthalidone 25 mg tablet 25 mg PO QAM 03/17/24 03/17/24 03/17/24 History Allergies Allergy/AdvReac Type Severity Reaction Status Date / Time codeine Allergy ADR/ALGY-Pa Verified 08/26/23 09:29 lpitations meloxicam [From Mobic] Allergy Unknown Verified 08/26/23 09:29 PFSH Acute 2 PFSH: Medical History (Updated 03/17/24 @ 16:16 by Richie Lebron MD) Anxiety and depression Abdominal pain in male Elevated blood pressure reading in office with diagnosis of hypertension Allergic rhinitis due to allergen Perforated right tympanic membrane on examination Hearing 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 COPD (chronic obstructive pulmonary disease) Smoker Age 8 to present, 2ppd so 100+ ppy Hypertension Normal colonoscopy Surgical History Status post lumbar spine operation History of colonoscopy (~2009) Social History Smoking and tobacco/nicotine status: current every day tobacco/nicotine user Alcohol intake: current Vitals/I&O/Wt Last Vital Signs Temp 98.0 F 03/17/24 14:37 Pulse 74 03/17/24 14:38 Resp 20 H 03/17/24 14:37 BP 167/92 03/17/24 14:38 Pulse Ox 98 03/17/24 14:38 O2 Del Method Room Air 03/17/24 14:37 Weight last 48 hrs Weight 68.039 kg Physical Exam 2 Narrative: General: No acute distress, AO x3 HEENT: PERRLA, pupils bilaterally equal and reactive Chest: Bilateral bronchial breath sounds all lung hall with occasional rhonchi CVS: S1-S2 regular, no murmurs, no tachycardia, no gallops, no rubs Abdomen: Soft, nontender, no organomegaly, bowel sounds present Neuro: No focal deficits, no facial deformity, AO x3, power 5/5 in all limbs Data 03/17/24 10:49 03/17/24 10:49 A&P Assessment and plan (1) Hypertensive urgency: Goal blood pressure less than 140/90 mmHg. Takes amlodipine and chlorthalidone at home. Has been missing his medications for over a month but restarted around 3 days ago. Continue with home dose of amlodipine and chlorthalidone. Add Coreg 6.25 mg twice daily. Uptitrate as for goal blood pressures. (2) Non-ST elevation RI (NSTEMI): Denies any active chest pain. Does complain of chest discomfort on presentation to the ER with on and off chest discomfort bilateral arm pain for last few weeks. Smoker. Chronic hypertensive. Uncontrolled. Cycle troponin. 2-hour troponin with delta of 12. Check echocardiogram. Aspirin 325 mg one-time further 81 mg daily. Atorvastatin 80 mg daily. Check A1c, lipid panel. Lovenox 1 mg/kg body weight Q12 hourly. N.p.o. after midnight. Lexiscan stress test. D-dimer normal. Check urine drug screen. (3) Tachycardia: Seen on admission. Received labetalol. Sinus on ECG. Telemetry. Coreg as above. Could be in setting of anxiety. Patient has been taking care of his spouse recently and states he has been anxious and taking Klonopin at home on and off. Continue with home dose of sertraline. Xanax to 24 hours as needed. (4) COPD (chronic obstructive pulmonary disease): Chronic history. No exacerbation. Xopenex as needed. Qualifiers: COPD type: emphysema Emphysema type: centrilobular Qualified Code(s): J43.2 - Centrilobular emphysema (5) Smoker: Plan Full code Cardiac diet, n.p.o. from midnight Full dose Lovenox if sufficient for DVT prophylaxis Protonix for PUD prophylaxis. Attestations 2 Medical Necessity Statement*: Admission under observation for management of hypertensive urgency, non-ST elevation RI as patient is awaiting cardiac stress test and further adjustment of antihypertensives. Diagnoses Hypertensive urgency I16.0 Non-ST elevation RI (NSTEMI) I21.4 Tachycardia R00.0 Centrilobular emphysema J43.2 COPD type: emphysema Emphysema type: centrilobular Smoker F17.200
--- NOTE | 2024-03-17 16:50 | ECG_ITS ---
[facility]24[facility]17 Pat Name: John Farah Department: Room: 107 Gender: Male Criminal Justice Faculty: : 1960 Requested By: Michelle Sher Order Number: [id number] Michelle MD: Temo Haley M.D. Measurements Intervals [place] Rate: 84 P: 66 ID: 132 QRS: 48 QRSD: 88 T: -2 QT: 359 QTc: 425 Interpretive Statements SINUS RHYTHM Compared to ECG 03/17/2024 12:50:14 Short ID interval no longer present Electronically Signed On 03-17-2024 17:44:32 DOCUMENTATION LEAD by Temo Haley M.D. [id number]
[2024-03-17] MEDS: carvedilol 6.25 mg Tablet PO (17:44)
[2024-03-17] MEDS: atorvastatin 40 mg Tablet 80 MG PO (21:21)
[2024-03-18] VITALS: BP 139/79; PULSE 71; RESP 22; TEMP 36.8; O2SAT 96
[2024-03-18] MEDS: enoxaparin 100 mg/mL Syringe 70 MG SUBCUT (02:52)
[2024-03-18 04:00] VITALS: BP 137/81; PULSE 83; RESP 19; TEMP 37; O2SAT 96
[2024-03-18 04:53] LABS: Basophils # 0.1 10^3/uL (0.0-0.1); Basophils % 0.6 %; Eosinophils # 0.3 10^3/uL (0.0-0.8); Eosinophils % 3.2 %; Hematocrit 49.8 % (37-53); Lymphocytes # 3.1 10^3/uL (0.8-4.8); Lymphocytes % 31.1 %; Mean Corpuscular HGB Conc 33.1 g/dL (30-55); Mean Corpuscular Hemoglobin 32.2 pg (27-33); Mean Corpuscular Volume 97.1 fl (82-101); Mean Platelet Volume 9.5 fL (7.4-10.4); Monocytes # 1.3 10^3/uL (0.2-0.9); Monocytes % 12.9 %; Neutrophils # 5.08 10^3/uL (1.8-7.7); Neutrophils % 51.6 %; Nucleated Red Blood Cells % 0 %; Platelet Count 269 10^3/cmm (157-399); Red Blood Count 5.13 10^6/uL (3.85-5.65); Red Cell Distribution Width 12.9 % (12.1-15.1); White Blood Count 9.86 10^3/uL (3.29-11.43)
[2024-03-18 05:18] LABS: Alanine Aminotransferase 18 U/L (0-41); Albumin Level 3.8 g/dL (3.5-5.2); Alkaline Phosphatase 110 U/L (40-130); Anion Gap 14.7 (5-19); Aspartate Amino Transferase 18 U/L (0-40); Blood Urea Nitrogen 17 mg/dL (8-23); Calcium 9.1 mg/dL (8.5-10.5); Carbon Dioxide 26 mmol/L (22-29); Chloride 100 mmol/L (98-107); Creatinine Clr Calc Pharmacy 59.3913; Globulin 3.2 g/dL (1.3-4.6); Glomerular Filtration Rate 60.8 mL/min (90-130); Glucose 107 mg/dL (65-115); Magnesium 1.8 mg/dL (1.7-2.3); Osmolality Calculated 286 mOsm/kg (285-295); Phosphorus 3.9 mg/dL (2.5-4.5); Potassium 3.7 mmol/L (3.5-5.1); Sodium 137 mmol/L (136-145); Total Bilirubin 0.4 mg/dL (0.15-1.2)
[2024-03-18 05:20] LABS: Chol HDL Ratio 3.83 mg/dL (1.0-5.00); Cholesterol 180 mg/dL (0-200); HDL Cholesterol 47 mg/dL (60-100); LDL Cholesterol Calculated 117 mg/dL (50-129); LDL HDL Ratio 2.49 RATIO (0.00-3.22); Triglycerides 78 mg/dL (0-150)
[2024-03-18 05:23] LABS: Procalcitonin 0.05 ng/mL (0-0.5)
[2024-03-18 05:27] LABS: Estmated Average Glucose 114; Hemoglobin A1C 5.6 % (4.0-6.0)
[2024-03-18] MEDS: chlorthalidone 25 mg Tablet PO (05:34)
[2024-03-18 05:36] LABS: Folate Level 11.9 ng/mL (4.5-32.2)
[2024-03-18 06:00] VITALS: PULSE 69
[2024-03-18] MEDS: regadenoson 0.4 Mg/5 ml Syringe IVP (06:57)
--- NOTE | 2024-03-18 07:15 | PC.NURSE ---
Patient off for stress test.
[2024-03-18 08:00] VITALS: BP 162/94; PULSE 80; RESP 14; TEMP 36.8; O2SAT 97
--- NOTE | 2024-03-18 08:01 | PC.NURSE ---
Patient returned to [facility] from stress [id number].
[2024-03-18] MEDS: pantoprazole DR 40 mg Tablet PO (08:18)
[2024-03-18] MEDS: sertraline 50 mg Tablet 25 MG PO (08:18)
[2024-03-18] MEDS: amlodipine 10 mg Tablet PO (08:18)
[2024-03-18] MEDS: carvedilol 6.25 mg Tablet PO (08:18)
[2024-03-18] MEDS: aspirin 81 mg EC Tablet PO (08:18)
[2024-03-18 09:32] LABS: Bilirubin Urine Negative (Negative); Blood Urine Negative (Negative); Glucose Urine UA Negative (Normal); Ketones Urine Negative (Negative); Leukocyte Esterase Urine Negative (Negative); Nitrate Urine Negative (Negative); Protein Urine Negative (Negative); Specific Gravity, Urine 1.009 (1.005-1.030); Urine Appearance Clear (CLEAR); Urine Color Yellow (Yellow); Urobilinogen Urine 0.2 mg/dL (Negative)
[2024-03-18 09:36] LABS: Add Urine Microscopic? YES; Bacteria Urine None Seen /hpf; Hyaline Casts Urine 0.81 /lpf; RBC Urine 0-2 /hpf (0-2); Squamous Epithelial Cell Urine 0-5 /hpf (0-5); WBC Urine 0-5 /hpf (0-5)
--- NOTE | 2024-03-18 10:07 | PM.DCS ---
Discharge Providers Date of Admission: 03/17/24 14:03 Date of Discharge: March 18, 2024 Attending Provider at Admission: Richie Lebron MD Attending Provider at Discharge: Richie Lebron MD Diagnoses at Discharge Discharge Diagnosis (1) Hypertensive urgency: Status: Acute (2) Non-ST elevation NC (NSTEMI): Status: Acute (3) Tachycardia: Status: Acute (4) COPD (chronic obstructive pulmonary disease): Status: Acute Qualifiers: COPD type: emphysema Emphysema type: centrilobular Qualified Code(s): J43.2 - Centrilobular emphysema (5) Smoker: Status: Acute Permanent problem details: Age 8 to present, 2ppd so 100+ ppy Reason for Visit Reason for Visit: HR is high Hospital Course Hospital Course John Farah is a 63 year old male with past medical history of hypertension, COPD who presents to the ER today because of chest discomfort which started today morning when he was resting. He felt palpitations with mild chest heaviness. He states he has been having some bilateral arm pains with chest heaviness on and off both at rest and exertion for last few weeks. He has been under a lot of stress as he has been taking care of his and has been missing his antihypertensive for over a month. Started taking his medications again on Friday. Today is Friday. Has been checking his blood pressures on and off and usually blood pressures run more than 180 systolics. States blood pressures improves after he takes Klonopin and it comes down to around 160s. In the ER he was found to have a blood pressure of more than 200 systolic with a heart rate of 150 bpm and given IV labetalol. He otherwise denies any nausea, vomiting, headache, dizziness, dysuria, diarrhea, abdominal pain. Patient was admitted to the hospital further evaluation and management of hypertensive urgency with concerns for non-ST elevation NC. He was started on his home antihypertensive, oral dose Lovenox as per ACS protocol. Patient did not have any further episode of chest pain or tachycardia during hospitalization. He underwent cardiac stress test on 03/18. While waiting for results to be back he requested to be discharged. We discussed if the stress test is negative plan will be to discharge but in case it is positive the plan would be to consult settlement clerk for possible angiogram tomorrow morning. Discussed the chances of stress test being positive as high as his troponin levels have trended up. Patient verbalized understanding and insisted on being discharged stating if this test is positive he will follow-up with his PCP as an outpatient and try to see settlement clerk and set up angiogram as an outpatient only. Patient stress test came back positive and his was called on the phone number provided in the chart. They were explained in detail about stress test is positive and he should follow-up with his PCP at the earliest to get a referral to see a settlement clerk or we can make an appointment to see a settlement clerk in his office. Patient stated they would get an appointment from the PCPs office. Physical Exam Narrative: General: No acute distress, AO x3 HEENT: PERRLA, pupils bilaterally equal and reactive Chest: Bilateral bronchial breath sounds all lung hall with occasional rhonchi CVS: S1-S2 regular, no murmurs, no tachycardia, no gallops, no rubs Abdomen: Soft, nontender, no organomegaly, bowel sounds present Neuro: No focal deficits, no facial deformity, AO x3, power 5/5 in all limbs Discharge Data Studies Completed and Pending Completed Studies During Hospitalization Category Date Time Status CXRP [XR chest 1V portable [id number]] Stat Exams 03/17/24 11:07 Completed Pending at discharge Category Date Time Status Sestamibi Stress Test Request Routine Exams 03/17/24 15:55 Ordered NM ina perf SPECT r/s* [id number] Routine Nuc Med 03/18/24 15:55 Taken CV. echo complete* [id number] Routine Ultrasound 03/17/24 14:37 Taken Radiology Impressions Chest X-Ray 03/17/24 11:07 IMPRESSION: 1. The lungs are clear. 2. Cardiomegaly. Lexiscan stress test: PERFUSION FINDINGS There is a small sized area of reversible perfusion defect seen in the apical lateral and anterolateral tillman. This is consistent with small area of ischemia seen in left circumflex artery territory. FUNCTIONAL RESULTS (calculated via Gated SPECT) Stress Image LV EF (%): 57 Stress EDV (mL):76 TID: 0.64 Stress ESV (mL):33 FUNCTIONAL FINDINGS: There is normal left ventricular systolic function. IMPRESSIONS 1. Small area of ischemia seen in left circumflex artery territory. 2. LV systolic function is normal Gunnar Monreal MD (Electronically Signed) Final Date: 18 March 2024 Echocardiogram: CONCLUSIONS LV systolic function is normal with EF of 55-60% Grade 1 diastolic dysfunction Trace mitral regurgitation No comparison studies are available. Gunnar Monreal MD (Electronically Signed) Final Date: 18 March 2024 12:14 Laboratory Results WBC 9.86 10^3/uL (3.29-11.43) 03/18/24 04:21 RBC 5.13 10^6/uL (3.85-5.65) 03/18/24 04:21 Hgb 16.50 g/dL (11.27-16.99) 03/18/24 04:21 Hct 49.8 % (37-53) 03/18/24 04:21 MCV 97.1 fl (82-101) 03/18/24 04:21 MCH 32.2 pg (27-33) 03/18/24 04:21 MCHC 33.1 g/dL (30-55) 03/18/24 04:21 RDW 12.9 % (12.1-15.1) 03/18/24 04:21 Plt Count 269 10^3/cmm (157-399) 03/18/24 04:21 MPV 9.5 fL (7.4-10.4) 03/18/24 04:21 Neut % (Auto) 51.6 % 03/18/24 04:21 Lymph % (Auto) 31.1 % 03/18/24 04:21 [place] % (Auto) 12.9 % 03/18/24 04:21 Eos % (Auto) 3.2 % 03/18/24 04:21 Baso % (Auto) 0.6 % 03/18/24 04:21 Neut # (Auto) 5.08 10^3/uL (1.8-7.7) 03/18/24 04:21 Lymph # (Auto) 3.1 10^3/uL (0.8-4.8) 03/18/24 04:21 [place] # (Auto) 1.3 10^3/uL (0.2-0.9) H 03/18/24 04:21 Eos # (Auto) 0.3 10^3/uL (0.0-0.8) 03/18/24 04:21 Baso # (Auto) 0.1 10^3/uL (0.0-0.1) 03/18/24 04:21 Nucleated RBC % (auto) 0 % 03/18/24 04:21 Nucleated RBCs # 0.0 /100WBC 03/18/24 04:21 D-Dimer 0.37 ug/mLFEU (0-0.59) 03/17/24 10:49 Sodium 137 mmol/L (136-145) 03/18/24 04:21 Potassium 3.7 mmol/L (3.5-5.1) 03/18/24 04:21 Chloride 100 mmol/L (98-107) 03/18/24 04:21 Carbon Dioxide 26 mmol/L (22-29) 03/18/24 04:21 Anion Gap 14.7 (5-19) 03/18/24 04:21 BUN 17 mg/dL (8-23) 03/18/24 04:21 Creatinine 1.2 mg/dL (0.7-1.2) 03/18/24 04:21 GFR Calculation 60.8 mL/min (90-130) L 03/18/24 04:21 Glucose 107 mg/dL (65-115) 03/18/24 04:21 Estimat Average Glucose 114 03/18/24 04:21 Hemoglobin A1c 5.6 % (4.0-6.0) 03/18/24 04:21 Calculated Osmolality 286 mOsm/kg (285-295) 03/18/24 04:21 Calcium 9.1 mg/dL (8.5-10.5) 03/18/24 04:21 Phosphorus 3.9 mg/dL (2.5-4.5) 03/18/24 04:21 Magnesium 1.8 mg/dL (1.7-2.3) 03/18/24 04:21 Iron 67 ug/dL (59-158) 03/17/24 12:49 TIBC 284 mcg/dl 03/17/24 12:49 % Saturation 23.5 % (20-50) 03/17/24 12:49 Unsat Iron Binding 217 ug/dL (112-347) 03/17/24 12:49 Total Bilirubin 0.4 mg/dL (0.15-1.2) 03/18/24 04:21 AST 18 U/L (0-40) 03/18/24 04:21 ALT 18 U/L (0-41) 03/18/24 04:21 Alkaline Phosphatase 110 U/L (40-130) 03/18/24 04:21 Troponin T Baseline 44 ng/L (0-15) H 03/17/24 10:49 Troponin T 120 Minute 56.06 ng/L (0-15) H 03/17/24 12:49 Delta Troponin T 12.06 ABS# (0-10) H* 03/17/24 12:49 Troponin T Hi Sens 6Hr 63.60 ng/L (0-15) H 03/17/24 17:10 Troponin T Hi Sens 6Hr Delta 19.60 ng/L (0-12) H* 03/17/24 17:10 Total Protein 7.0 g/dL (6.6-8.7) 03/18/24 04:21 Albumin 3.8 g/dL (3.5-5.2) 03/18/24 04:21 Globulin 3.2 g/dL (1.3-4.6) 03/18/24 04:21 Triglycerides 78 mg/dL (0-150) 03/18/24 04:21 Cholesterol 180 mg/dL (0-200) 03/18/24 04:21 LDL Cholesterol, Calc 117 mg/dL (50-129) 03/18/24 04:21 HDL Cholesterol 47 mg/dL (60-100) L 03/18/24 04:21 LDL/HDL Ratio 2.49 RATIO (0.00-3.22) 03/18/24 04:21 Cholesterol/HDL Ratio 3.83 mg/dL (1.0-5.00) 03/18/24 04:21 Vitamin B12 414 pg/mL (232-1245) 03/17/24 12:49 Folate 11.9 ng/mL (4.5-32.2) 03/18/24 04:21 Procalcitonin 0.05 ng/mL (0-0.5) 03/18/24 04:21 TSH 2.06 uIU/mL (0.27-4.20) 03/17/24 12:49 Urine Color Yellow (Yellow) 03/17/24 12:48 Urine Appearance Clear (CLEAR) 03/17/24 12:48 Urine pH 6.0 (5-7) 03/17/24 12:48 Ur Specific [place] 1.009 (1.005-1.030) 03/17/24 12:48 Urine Protein Negative (Negative) 03/17/24 12:48 Urine Glucose (UA) Negative (Normal) 03/17/24 12:48 Urine Ketones Negative (Negative) 03/17/24 12:48 Urine Blood Negative (Negative) 03/17/24 12:48 Urine Nitrate Negative (Negative) 03/17/24 12:48 Urine Bilirubin Negative (Negative) 03/17/24 12:48 Urine Urobilinogen 0.2 mg/dL (Negative) 03/17/24 12:48 Ur Leukocyte Esterase Negative (Negative) 03/17/24 12:48 Urine RBC 0-2 /hpf (0-2) 03/17/24 12:48 Urine WBC 0-5 /hpf (0-5) 03/17/24 12:48 Ur Squamous Epith Cells 0-5 /hpf (0-5) 03/17/24 12:48 Amorphous Sediment Not Reportable 03/17/24 12:48 Urine Bacteria None seen /hpf (NONE) 03/17/24 12:48 Hyaline Casts 0.81 /lpf 03/17/24 12:48 Urine Opiates Screen Negative ng/mL (Negative) 03/17/24 12:48 Ur Barbiturates Screen Negative ng/mL (Negative) 03/17/24 12:48 Ur Phencyclidine Scrn Negative ng/mL (Negative) 03/17/24 12:48 Ur Amphetamines Screen Negative ng/mL (Negative) 03/17/24 12:48 U Benzodiazepines Scrn Negative ng/mL (Negative) 03/17/24 12:48 Urine Cocaine Screen Negative ng/mL (Negative) 03/17/24 12:48 U Marijuana (THC) Screen Negative ng/mL (Negative) 03/17/24 12:48 Vitals Last Vital Signs Temp 98.3 F 03/18/24 08:00 Pulse 80 03/18/24 08:00 Resp 14 03/18/24 08:00 BP 162/94 03/18/24 08:00 Pulse Ox 97 03/18/24 08:00 O2 Del Method Room Air 03/18/24 08:00 Discharge Plan Discharge Patient Disposition: Home Condition: Stable Prescriptions: New carvedilol 6.25 mg Tablet 9.375 mg PO BID 30 Days Qty: 90 0RF pantoprazole 40 mg Tablet,Delayed Release (Dr/Ec) 40 mg PO DAILY Qty: 30 0RF atorvastatin 20 mg tablet 20 mg PO DAILY Qty: 30 0RF Continued aspirin 81 mg tablet,delayed release (DR/EC) 81 mg PO ONCE Qty: 90 5RF albuterol sulfate 90 mcg/actuation HFA aerosol inhaler 2 inh inhalation Q4H PRN (Reason: shortness of breath or wheezing) Qty: 6.7 5RF chlorthalidone 25 mg tablet 25 mg PO QAM amlodipine 10 mg tablet 10 mg PO DAILY sertraline 25 mg Tablet 25 mg PO DAILY Discharge Orders: Discharge Order (Routine); Ordered 03/18/24 Ordered By: Richie Lebron Referrals: [facility] [Outside] (Patient needs to call PCP to make follow up ) Discharge Diet: Cardiac Discharge Activity: Resume usual activity and Increase activity as tolerated Patient Instructions: Heart Attack (DC), Chest Pain (DC), Opioid Safety Activity Restrictions/Additional Instructions: Check your blood pressures daily at home and maintain a blood pressure diary and follow-up with a primary care provider within next 2 weeks for further adjustment of antihypertensive. Goal blood pressure less than 140/90 mmhg. Continue your home antihypertensive episode. Carvedilol 9.375 mg has been added to your medication list. Continuing baby aspirin as before. Atorvastatin has been added to your medication list. If test is positive you will need to follow-up with your primary care provider at the earliest to get a referral to see cardiology in their office. Discharge Attestations Time Spent in Discharge Care*: greater than 30 min Specific Discharge Activities: educating patient, educating and/or supporting family/caregiver, discussing with pcp/other providers, discussing with pillowcase cutter/social workers/dc planners, documenting/other paperwork and evaluating patient/reviewing data Status at Discharge: Cognitive status at discharge: cognitively intact, Behavioral status at discharge: cooperative, Functional status at discharge: independent ambulation, Overall status at discharge: patient is progressing back to baseline Quality Metrics Clinical Quality Measures [ No reported AMI, CVA or VTE this stay] Coding Level of Care Code 16772 Total time (in minutes) for Discharge: 60 Diagnoses Hypertensive urgency I16.0 Non-ST elevation NC (NSTEMI) I21.4 Tachycardia R00.0 Centrilobular emphysema J43.2 COPD type: emphysema Emphysema type: centrilobular Smoker F17.200
[2024-03-18 10:33] VITALS: BP 162/94; PULSE 80; RESP 20; TEMP 36.9; O2SAT 96
--- NOTE | 2024-03-18 10:47 | PC.NURSE ---
Patient left choose to leave prior to knowing stress test results. Patient and walked themselves out to their car by the ED entrance.
--- NOTE | 2024-03-18 15:55 | NMCV_ITS ---
NM ina perf SPECT r/s* [id number] John Farah Age: 63 Gender: M : 1960 Exam Date: 03/18/2024 06:24 Ordering Phys: Richie Lebron MD Technologist: BYRON Bains Exam Location: [facility] Indications: cp STRESS TEST Please see separate stress test report in [facility] for full findings IMAGE PROTOCOL Rest/Stress 1 Lexiscan Day Radiopharmaceutical Dose (mCi) Administration Site Administered by Rest: Tc-99m 10.9 IV BYRON Coto Sestamibi Stress:Tc-99m 32 IV BYRON Bains Sestamiesvin Rest: 18-Mar-2024 60 Discovery 630 Stress: 18-Mar-2024 30 Discovery 630 0.4mg Lexiscan. Images obtained in supine and prone position. SPECT RESULTS Technical Quality: Good Raw Data Analysis: Normal Image Corrections: No attenuation or motion correction applied Summed Stress Score: 3 Summed Rest Score: 0 Summed Difference Score: 3 PERFUSION FINDINGS There is a small sized area of reversible perfusion defect seen in the apical lateral and anterolateral tillman. This is consistent with small area of ischemia seen in left circumflex artery territory. FUNCTIONAL RESULTS (calculated via Gated SPECT) Stress Image LV EF (%): 57 Stress EDV (mL):76 TID: 0.64 Stress ESV (mL):33 FUNCTIONAL FINDINGS: There is normal left ventricular systolic function. IMPRESSIONS 1. Small area of ischemia seen in left circumflex artery territory. 2. LV systolic function is normal Gunnar Monreal MD (Electronically Signed) Final Date: 18 March 2024 11:39 S
== END 2024-03-18 10:47 | disposition home or self-care (01) ==
LOC: ER 12:53 → CSU 14:03
PROVIDERS: Admitting Provider Student in an Organized Health Care Education/Training Program; Emergency Provider Emergency Medicine; Visit Provider Student in an Organized Health Care Education/Training Program
DX: I21.4 Non-ST elevation (NSTEMI) myocardial infarction (principal); I16.0 Hypertensive urgency; R00.0 Tachycardia, unspecified; J43.2 Centrilobular emphysema; F17.200 Nicotine dependence, unspecified, uncomplicated; I10 Essential (primary) hypertension; J44.9 Chronic obstructive pulmonary disease, unspecified
CPT/HCPCS: 36415; 71045; 78452; 80053; 80061; 80306; 81001; 82607; 82746; 83036; 83540; 83550; 83735; 84100; 84145; 84443; 84484; 85025; 85378; 93005; 93017; 93306; 94664; 96372; 96374; 96375; 96376; 99285; A9500; G0378; J1650; J2785; J3490